=== PATIENT | male | born 1970 | race Caucasian/White ===

== ENCOUNTER 2021-04-18 22:36 | Emergency (ER) | payer OTHER, MEDICARE ==
[2021-04-18 22:59] LABS: HEMOGLOBIN 15.2 gm/dl (14.0-17.5); RED BLOOD COUNT 5.51 M/UL (4.20-5.50); WHITE BLOOD COUNT 19.4 K/UL (4.5-11.0)
[2021-04-18 23:18] LABS: BUN/CREATININE RATIO 16 (0-10)
== END 2021-04-19 02:20 | disposition short-term general hospital (02) ==
LOC: ER1 22:36
PROVIDERS: Emergency Medicine; Student in an Organized Health Care Education/Training Program
DX: S02.40CA Maxillary fracture, right side, initial encounter for closed fracture (principal); S32.039A Unspecified fracture of third lumbar vertebra, initial encounter for closed fracture; S22.059A Unspecified fracture of T5-T6 vertebra, initial encounter for closed fracture; S42.031A Displaced fracture of lateral end of right clavicle, initial encounter for closed fracture; S42.101A Fracture of unspecified part of scapula, right shoulder, initial encounter for closed fracture; S30.0XXA Contusion of lower back and pelvis, initial encounter; E11.9 Type 2 diabetes mellitus without complications; F17.200 Nicotine dependence, unspecified, uncomplicated; Z79.899 Other long term (current) drug therapy; V49.40XA Driver injured in collision with unspecified motor vehicles in traffic accident, initial encounter; Y92.410 Unspecified street and highway as the place of occurrence of the external cause
CPT/HCPCS: 70450; 70486; 71045; 71260; 72125; 72170; 73610; 80053; 80307; 81001; 83605; 85025; 85610; 85730; 86850; 86900; 86901; 90715; 94760; 99285; G0480; J1170; J2270; J2405; Q9967